=== PATIENT | female | born 1960 | race African-American/Black ===

== ENCOUNTER 2018-03-10 12:15 | Emergency (ER) | payer MEDICAID, MEDICARE ==
[~2018-03-10] VITALS: Ht 167.6 cm; Wt 90.0 kg
[2018-03-10] MEDS ORDERED: KETOROLAC 30MG/ML VIAL IM ONE (15:15)
[2018-03-10 15:33] VITALS: BP 131/53
== END 2018-03-10 16:23 | disposition home or self-care (01) ==
LOC: ER 12:15
DX: S82.251A Displaced comminuted fracture of shaft of right tibia, initial encounter for closed fracture (principal); S82.491A Other fracture of shaft of right fibula, initial encounter for closed fracture; F17.200 Nicotine dependence, unspecified, uncomplicated; X58.XXXA Exposure to other specified factors, initial encounter; Y93.89 Activity, other specified; Y92.89 Other specified places as the place of occurrence of the external cause
CPT/HCPCS: 73590; 73610; 73630; 96372; 99284; J1885

== ENCOUNTER 2025-02-10 08:27 | Inpatient (IN) | payer MEDICAID ==
[~2025-02-10] VITALS: Ht 165.1 cm; Wt 95.8 kg
[2025-02-10] VITALS (44 sets, daily range): BP systolic 107–165; BP diastolic 60–136; PULSE 81–121; RESP 17–27; TEMP 36.2–37.1; O2SAT 0–100
[2025-02-10 09:11] LABS: BASOPHILS % 0.2 % (0.0-2.0); HEMATOCRIT. 43.7 % (36.0-48.0); HEMOGLOBIN. 14.2 g/dL (12.0-16.0); LYMPHOCYTES % 10.5 % (20.0-50.0); MEAN CORPUSCULAR HEMOGLOBIN 27.2 pg (28.0-32.0); MEAN CORPUSCULAR HGB CONC 32.5 g/dL (31.0-37.0); MEAN CORPUSCULAR VOLUME 83.7 fL (81.0-99.0); MEAN PLATELET VOLUME 8.7 fl (7.4-10.4); MONOCYTES % 3.6 % (2.0-8.0); NEUTROPHILS % 85.7 % (40.0-76.0); PLATELET 197 x1000/uL (130-400); RED BLOOD CELL COUNT 5.21 mill/uL (4.2-5.4); RED CELL DISTRIBUTION WIDTH 16.4 % (11.6-14.6); WHITE BLOOD COUNT 6.1 x1000/uL (4.5-11.0)
[2025-02-10 09:16] LABS: LACTIC ACID 2.1 mmol/L (0.4-2.0)
[2025-02-10] MEDS: PROPOFOL 10MG/ML 100ML 100 ML IV SCH (09:17)
[2025-02-10] MEDS: ETOMIDATE 2MG/ML 10ML VIAL IV ONE (09:17)
[2025-02-10] MEDS: ROCURONIUM BROMIDE 10MG/ML VIAL 5ML IV ONE (09:17)
[2025-02-10] MEDS: SODIUM CHLORIDE 0.9% 1,000 ML IV ONE ×2 (09:17→09:40)
[2025-02-10] MEDS: NALOXONE HCL 0.4MG/ML 1ML VIAL IV PRN (09:18)
[2025-02-10 09:23] LABS: CHLORIDE 111 mEq/L (98-107); POTASSIUM 3.6 mEq/L (3.5-5.1); SODIUM 150 mEq/L (136-145)
[2025-02-10 09:24] LABS: CARBON DIOXIDE 27 mEq/L (21-32)
[2025-02-10 09:25] LABS: CALCIUM 9.4 mg/dL (8.7-10.4)
[2025-02-10 09:29] LABS: GLUCOSE 129 mg/dL (70-105)
[2025-02-10 09:30] LABS: AMMONIA < 17 uMol/L (<32); ETHANOL BLOOD < 10 mg/dL (<10); UREA NITROGEN BLOOD 25 mg/dL (9-23)
[2025-02-10 09:31] LABS: ALANINE AMINOTRANSFERASE 7 IU/L (10-49); ALBUMIN 3.8 g/dL (3.2-4.8); ASPARTATE AMINOTRANSFERASE 18 IU/L (<34); CREATINE KINASE 205 IU/L (34-145)
[2025-02-10 09:32] LABS: BILIRUBIN DIRECT 0.3 mg/dL (<=3.0); PROTEIN TOTAL 7.1 g/dL (6.0-8.3)
[2025-02-10 09:36] LABS: BG BASE EXCESS -4.2 mmol/L (-2.0-3.0); BG CARBOXYHEMOGLOBIN 2.3 % (0.5-1.5); BG FRACTION INSPIRED OXYGEN 100; BG HCO3 ACT 22.8 mmol/L (21.0-28.0); BG METHEMOGLOBIN 0.3 % (0.5-1.5); BG OXYGEN SATURATION 91.8 % (94.0-98.0); BG OXYHEMOGLOBIN 89.4 % (94.0-98.0); BG PCO2 49.4 mmHg (32.0-45.0); BG PH 7.283 (7.350-7.450); BG PO2 70.9 mmHg (83.0-108.0); BG SAMPLE SITE RIGHT BRACHIAL; BG TOTAL HEMOGLOBIN 13.8 g/dL (12.0-16.0); BG VENT MODE VENT - AC
[2025-02-10 09:37] LABS: CREATININE 1.5 mg/dL (0.6-1.0)
[2025-02-10 09:39] LABS: TROPONIN I HIGH SENSITIVITY 84 ng/L (3.0-34)
[2025-02-10 10:27] LABS: CLARITY URINE TURBID (CLEAR); COLOR URINE YELLOW (YELLOW); GLUCOSE URINE NEGATIVE (NEGATIVE); KETONES URINE TRACE (NEGATIVE); LEUKOCYTE ESTERASE URINE 3+ (NEGATIVE); NITRITE URINE POSITIVE (NEGATIVE); OCCULT BLOOD URINE 1+ (NEGATIVE); PH URINE 6.5 (4.5-8.0); PROTEIN URINE 2+ (NEGATIVE); SPECIFIC GRAVITY URINE 1.021 (1.005-1.030)
[2025-02-10 10:37] LABS: BACTERIA URINE 3+; SQUAMOUS EPITHELIAL CELL URINE 3+ /lpf (RARE/1+); WBC URINE TNTC /hpf (0-2); YEAST URINE NONE SEEN
[2025-02-10] MEDS ORDERED: GUAIFENESIN 200MG/10ML SUGAR FREE UDC PO PRN (11:00)
[2025-02-10] MEDS ORDERED: DIPHENHYDRAMINE 50MG/ML VIAL IV PRN (11:00)
[2025-02-10] MEDS ORDERED: PIPERACILLIN/TAZOBACTAM 3.375 G in DEXTROSE 5% WATER 50 ML IV SCH (11:00)
[2025-02-10] MEDS ORDERED: ONDANSETRON HCL 4MG/2ML INJ IV PRN (11:00)
[2025-02-10] MEDS ORDERED: IPRATROPIUM/ALBUTEROL 0.5-3(2.5)MG/3ML NEB HHN PRN (11:00)
[2025-02-10] MEDS ORDERED: DOCUSATE SODIUM 100MG CAPSULE PO PRN (11:00)
[2025-02-10] MEDS ORDERED: ACETAMINOPHEN 325MG TABLET PO PRN (11:00)
[2025-02-10] MEDS ORDERED: MAGNESIUM/ALUMINUM HYDROXIDE/SIMETHICONE 30ML UDC PO PRN (11:00)
[2025-02-10] MEDS: SODIUM CHLORIDE 0.45% 1,000 ML IV SCH (11:09)
[2025-02-10 11:18] LABS: *AMPHETAMINES SCREEN URINE NEGATIVE (NEGATIVE); *BARBITURATES SCREEN URINE NEGATIVE (NEGATIVE); *BENZODIAZEPINES SCREEN URINE PRESUMPTIVE POSITIVE (NEGATIVE); *COCAINE SCREEN URINE PRESUMPTIVE POSITIVE (NEGATIVE); CANNABINOID URINE SCREEN NEGATIVE (NEGATIVE); ECSTASY MDMA SCREEN URINE NEGATIVE (NEGATIVE); METHADONE URINE SCREEN NEGATIVE (NEGATIVE); OPIATES URINE SCREEN NEGATIVE (NEGATIVE); PHENCYCLIDINE URINE SCREEN PRESUMTIVE POSITIVE (NEGATIVE)
[2025-02-10 11:49] LABS: CHLORIDE 116 mEq/L (98-107); POTASSIUM 3.2 mEq/L (3.5-5.1); SODIUM 151 mEq/L (136-145)
[2025-02-10 11:50] LABS: CALCIUM 8.3 mg/dL (8.7-10.4); CARBON DIOXIDE 26 mEq/L (21-32)
[2025-02-10 11:55] LABS: CREATININE 1.3 mg/dL (0.6-1.0); GLUCOSE 128 mg/dL (70-105); UREA NITROGEN BLOOD 24 mg/dL (9-23)
[2025-02-10 11:57] LABS: ALANINE AMINOTRANSFERASE 9 IU/L (10-49); ALBUMIN 3.2 g/dL (3.2-4.8); ASPARTATE AMINOTRANSFERASE 23 IU/L (<34); CREATINE KINASE 466 IU/L (34-145); PHOSPHORUS 3.3 mg/dL (2.5-4.9)
[2025-02-10 11:58] LABS: BILIRUBIN TOTAL 0.8 mg/dL (0.1-1.0); PROTEIN TOTAL 6.2 g/dL (6.0-8.3)
[2025-02-10] MEDS ORDERED: VANCOMYCIN 1GM/200ML PMX (BAXTER) IV SCH ×2 (12:00→14:00)
[2025-02-10 12:17] LABS: TROPONIN I HIGH SENSITIVITY 87 ng/L (3.0-34)
[2025-02-10] MEDS ORDERED: PIPERACILLIN/TAZO 3.375G/50ML 50 ML IV SCH (14:00)
[2025-02-10] MEDS: PANTOPRAZOLE SODIUM 40 MG/VIAL IV SCH (14:13)
[2025-02-10] MEDS: METHYLPREDNISOLONE SOD SUCC 40MG/ML (ACT-O-VIAL) IV SCH (14:13)
[2025-02-10] MEDS: ASPIRIN 81MG TABLET PO SCH (14:14)
[2025-02-10] MEDS: PIPERACILLIN/TAZO 3.375G/50ML IV SCH (14:14)
[2025-02-10] MEDS ORDERED: MAGNESIUM SULFATE 1GM/2ML VIAL IM ONE (14:15)
[2025-02-10] MEDS ORDERED: POTASSIUM CHLORIDE 40 MEQ in DEXT 5% WATER 230 ML IV ONE (14:15)
[2025-02-10] MEDS: VANCOMYCIN 2GM PMX (XELLIA) 400 ML IV NR (14:15)
[2025-02-10] MEDS: ENOXAPARIN 40MG/0.4ML SYR SUBCUT SCH (14:15)
[2025-02-10] MEDS: CLONIDINE 0.1MG TABLET PO PRN (15:04)
[2025-02-10] MEDS: MAGNESIUM 1 G PREMIX 100 ML IV SCH (15:08)
[2025-02-10] MEDS: KCL 20MEQ/100ML X 2 FOR TOTAL KCL 40MEQ/200ML IV SCH (15:08)
[2025-02-10] MEDS: IPRATROPIUM/ALBUTEROL 0.5-3(2.5)MG/3ML NEB HHN SCH (15:11)
[2025-02-10 16:29] LABS: BG BASE EXCESS -4.2 mmol/L (-2.0-3.0); BG CARBOXYHEMOGLOBIN 1.8 % (0.5-1.5); BG DEOXYHEMOGLOBIN 0.3 % (0.0-5.0); BG FRACTION INSPIRED OXYGEN 100; BG METHEMOGLOBIN 0.3 % (0.5-1.5); BG OXYGEN SATURATION 99.7 % (94.0-98.0); BG OXYHEMOGLOBIN 97.6 % (94.0-98.0); BG PCO2 44.3 mmHg (32.0-45.0); BG PH 7.313 (7.350-7.450); BG PO2 413.6 mmHg (83.0-108.0); BG SAMPLE SITE RIGHT RADIAL; BG TOTAL HEMOGLOBIN 13.4 g/dL (12.0-16.0); BG VENT MODE VENT - AC
[2025-02-10 19:07] LABS: CREATINE KINASE MB FRACTION 9.1 ng/mL (0.5-3.6)
[2025-02-10] MEDS: ATORVASTATIN CALCIUM 40MG TABLET PO SCH (21:37)
[2025-02-11] VITALS (100 sets, daily range): BP systolic 104–194; BP diastolic 60–134; PULSE 66–119; RESP 18–34; TEMP 36.3–36.8; O2SAT 98–100
[2025-02-11] MEDS: PROPOFOL 10MG/ML 100ML 100 ML IV PRN (00:17)
[2025-02-11 01:42] LABS: CREATINE KINASE MB FRACTION 5.4 ng/mL (0.5-3.6)
[2025-02-11 05:11] LABS: HEMATOCRIT. 39.6 % (36.0-48.0); HEMOGLOBIN. 12.5 g/dL (12.0-16.0); MEAN CORPUSCULAR HEMOGLOBIN 26.7 pg (28.0-32.0); MEAN CORPUSCULAR HGB CONC 31.5 g/dL (31.0-37.0); MEAN CORPUSCULAR VOLUME 84.7 fL (81.0-99.0); MEAN PLATELET VOLUME 9.1 fl (7.4-10.4); PLATELET 164 x1000/uL (130-400); RED BLOOD CELL COUNT 4.67 mill/uL (4.2-5.4); RED CELL DISTRIBUTION WIDTH 16.8 % (11.6-14.6); WHITE BLOOD COUNT 14.1 x1000/uL (4.5-11.0)
[2025-02-11 05:18] LABS: DIFFERENTIAL COMMENT 1
[2025-02-11 05:30] LABS: CARBON DIOXIDE 24 mEq/L (21-32); CHLORIDE 112 mEq/L (98-107); POTASSIUM 4.3 mEq/L (3.5-5.1); SODIUM 147 mEq/L (136-145)
[2025-02-11 05:36] LABS: CREATININE 1.3 mg/dL (0.6-1.0); GLUCOSE 135 mg/dL (70-105); TRIGLYCERIDE 87 mg/dL (0-150); UREA NITROGEN BLOOD 26 mg/dL (9-23)
[2025-02-11 05:37] LABS: LDL CHOLESTEROL 52 mg/dL (5-100)
[2025-02-11 05:38] LABS: CHOLESTEROL 140 mg/dL (<200); HDL CHOLESTEROL 69 mg/dL (>65)
[2025-02-11 05:40] LABS: ANISOCYTOSIS 1+; PLATELET ESTIMATE NORMAL; T4 FREE 1.02 ng/dL (0.89-1.76); THYROID STIMULATING HORMONE < 0.10 uIU/mL (0.55-4.78)
[2025-02-11 09:27] LABS: BG BASE EXCESS -5.9 mmol/L (-2.0-3.0); BG CARBOXYHEMOGLOBIN 1.8 % (0.5-1.5); BG DEOXYHEMOGLOBIN 3.1 % (0.0-5.0); BG FRACTION INSPIRED OXYGEN 40; BG HCO3 ACT 18.9 mmol/L (21.0-28.0); BG METHEMOGLOBIN 0.2 % (0.5-1.5); BG OXYGEN SATURATION 96.8 % (94.0-98.0); BG OXYHEMOGLOBIN 94.9 % (94.0-98.0); BG PCO2 34.9 mmHg (32.0-45.0); BG PH 7.352 (7.350-7.450); BG PO2 85.8 mmHg (83.0-108.0); BG SAMPLE SITE RIGHT RADIAL; BG TOTAL HEMOGLOBIN 12.3 g/dL (12.0-16.0); BG VENT MODE VENT - AC
[2025-02-11] MEDS: DEXMEDETOMIDINE 400 MCG/100 ML 100 ML IV PRN (09:36)
[2025-02-11] MEDS: HYDRALAZINE 20MG/ML VIAL IV NR (14:51)
[2025-02-11 15:14] LABS: INFLUENZA TYPE A Presumptive Negative (Pres. Neg.); INFLUENZA TYPE B Presumptive Negative (Pres. Neg.)
[2025-02-11 15:15] LABS: RESPIRATORY SYNCYTIAL VIRUS Not Detected (Not Detectd)
[2025-02-11] MEDS ORDERED: ENOXAPARIN 100MG/ML SYR SUBCUT NR (16:00)
[2025-02-11] MEDS: VANCOMYCIN 1GM/200ML PMX (BAXTER) IV SCH (17:22)
[2025-02-11] MEDS: ENOXAPARIN 60MG/0.6ML SYR SUBCUT NR (17:23)
[2025-02-11] MEDS: HYDRALAZINE 20MG/ML VIAL IV PRN (20:20)
[2025-02-12] VITALS (104 sets, daily range): BP systolic 98–206; BP diastolic 53–104; PULSE 57–98; RESP 16–32; TEMP 36.3–36.9; O2SAT 97–100
[2025-02-12] MEDS ORDERED: LABETALOL 5MG/ML 4ML INJ IV PRN (01:30)
[2025-02-12] MEDS: HYDRALAZINE 20MG/ML VIAL IV PRN (02:08)
[2025-02-12] MEDS: LABETALOL 5MG/ML 4ML INJ IV PRN (05:22)
[2025-02-12] MEDS: ENOXAPARIN 100MG/ML SYR SUBCUT SCH (05:49)
[2025-02-12 06:03] LABS: HEMATOCRIT 42.5 % (36.0-48.0); HEMATOCRIT. 42.5 % (36.0-48.0); HEMOGLOBIN 13.6 g/dL (12.0-16.0); HEMOGLOBIN. 13.6 g/dL (12.0-16.0); MEAN CORPUSCULAR VOLUME 84.4 fL (81.0-99.0); MEAN PLATELET VOLUME 9.5 fl (7.4-10.4); PLATELET 150 x1000/uL (130-400); RED BLOOD CELL COUNT 5.03 mill/uL (4.2-5.4); RED CELL DISTRIBUTION WIDTH 16.9 % (11.6-14.6); WHITE BLOOD COUNT 14.8 x1000/uL (4.5-11.0)
[2025-02-12 06:07] LABS: DIFFERENTIAL COMMENT 1
[2025-02-12 06:26] LABS: CARBON DIOXIDE 20 mEq/L (21-32); CHLORIDE 108 mEq/L (98-107); POTASSIUM 4.2 mEq/L (3.5-5.1); SODIUM 140 mEq/L (136-145)
[2025-02-12 06:31] LABS: CREATININE 1.1 mg/dL (0.6-1.0); GLUCOSE 142 mg/dL (70-105); TRIGLYCERIDE 55 mg/dL (0-150)
[2025-02-12 06:32] LABS: UREA NITROGEN BLOOD 24 mg/dL (9-23)
[2025-02-12 06:34] LABS: PHOSPHORUS 2.9 mg/dL (2.5-4.9)
[2025-02-12 08:19] LABS: PLATELET ESTIMATE NORMAL
[2025-02-12 08:20] LABS: ANISOCYTOSIS 1+
[2025-02-12] MEDS: HYDRALAZINE 20MG/ML VIAL IV SCH (08:46)
[2025-02-12] MEDS ORDERED: VANCOMYCIN 1.25GM/250ML IV SCH (12:00)
[2025-02-12] MEDS: AZITHROMYCIN 500MG/250ML 250 ML IV SCH (13:52)
[2025-02-12] MEDS: SODIUM CHLORIDE 0.45% 1,000 ML IV SCH (14:03)
[2025-02-12] MEDS: HYDRALAZINE HCL 25MG TABLET PO SCH (14:09)
[2025-02-12] MEDS: METRONIDAZOLE 500MG TABLET PO SCH (14:31)
[2025-02-12] MEDS: CEFTRIAXONE 1GM/50ML 50 ML IV SCH (15:22)
[2025-02-13] VITALS (80 sets, daily range): BP systolic 96–189; BP diastolic 53–128; PULSE 63–118; RESP 14–40; TEMP 36.4–37.1; O2SAT 97–100
[2025-02-13 06:05] LABS: HEMATOCRIT. 38.4 % (36.0-48.0); HEMOGLOBIN. 12.3 g/dL (12.0-16.0); MEAN CORPUSCULAR HEMOGLOBIN 26.5 pg (28.0-32.0); MEAN CORPUSCULAR VOLUME 82.8 fL (81.0-99.0); MEAN PLATELET VOLUME 9.4 fl (7.4-10.4); PLATELET 150 x1000/uL (130-400); RED BLOOD CELL COUNT 4.64 mill/uL (4.2-5.4); RED CELL DISTRIBUTION WIDTH 16.5 % (11.6-14.6)
[2025-02-13 06:21] LABS: CHLORIDE 109 mEq/L (98-107); POTASSIUM 3.8 mEq/L (3.5-5.1); SODIUM 144 mEq/L (136-145)
[2025-02-13 06:22] LABS: CARBON DIOXIDE 23 mEq/L (21-32)
[2025-02-13 06:23] LABS: CALCIUM 8.5 mg/dL (8.7-10.4)
[2025-02-13 06:28] LABS: GLUCOSE 112 mg/dL (70-105); UREA NITROGEN BLOOD 27 mg/dL (9-23)
[2025-02-13 06:29] LABS: DIFFERENTIAL COMMENT 1
[2025-02-13] MEDS: AMLODIPINE 5MG TABLET PO SCH ×2 (09:23→21:00)
[2025-02-13 11:12] LABS: ANISOCYTOSIS 1+; PLATELET ESTIMATE NORMAL
[2025-02-13] MEDS: LORAZEPAM 2MG/ML UD SYRINGE IV NR ×2 (11:13→22:50)
[2025-02-13] MEDS ORDERED: NALOXONE HCL 0.4MG/ML VIAL IV PRN (12:00)
[2025-02-13] MEDS: MORPHINE SULFATE 2 MG/ML INJ (NOT FOR IM USE) IV NR (12:13)
[2025-02-13] MEDS: CLONIDINE 0.1MG TABLET PO SCH (15:01)
[2025-02-13 17:17] LABS: BG BASE EXCESS -2.5 mmol/L (-2.0-3.0); BG CARBOXYHEMOGLOBIN 1.6 % (0.5-1.5); BG DEOXYHEMOGLOBIN 2.1 % (0.0-5.0); BG FRACTION INSPIRED OXYGEN 40; BG HCO3 ACT 20.7 mmol/L (21.0-28.0); BG METHEMOGLOBIN 0.3 % (0.5-1.5); BG OXYGEN SATURATION 97.9 % (94.0-98.0); BG PH 7.443 (7.350-7.450); BG PO2 97.9 mmHg (83.0-108.0); BG SAMPLE SITE RIGHT RADIAL; BG TOTAL HEMOGLOBIN 12.1 g/dL (12.0-16.0); BG VENT MODE VENT - AC
[2025-02-13] MEDS: DEXMEDETOMIDINE 400 MCG/100 ML 100 ML IV PRN (20:53)
[2025-02-14] VITALS (63 sets, daily range): BP systolic 91–159; BP diastolic 52–90; PULSE 60–99; RESP 13–29; TEMP 36.4–37; O2SAT 96–100
[2025-02-14 05:54] LABS: BASOPHILS % 0.1 % (0.0-2.0); EOSINOPHILS % 0.1 % (0.0-5.0); HEMATOCRIT. 37.5 % (36.0-48.0); HEMOGLOBIN. 12.3 g/dL (12.0-16.0); LYMPHOCYTES % 25.9 % (20.0-50.0); MEAN CORPUSCULAR HEMOGLOBIN 26.9 pg (28.0-32.0); MEAN CORPUSCULAR HGB CONC 32.8 g/dL (31.0-37.0); MEAN CORPUSCULAR VOLUME 82.1 fL (81.0-99.0); MEAN PLATELET VOLUME 9.2 fl (7.4-10.4); MONOCYTES % 7.8 % (2.0-8.0); NEUTROPHILS % 66.1 % (40.0-76.0); PLATELET 144 x1000/uL (130-400); RED BLOOD CELL COUNT 4.56 mill/uL (4.2-5.4); WHITE BLOOD COUNT 7.1 x1000/uL (4.5-11.0)
[2025-02-14 06:12] LABS: CARBON DIOXIDE 24 mEq/L (21-32); CHLORIDE 109 mEq/L (98-107); POTASSIUM 3.4 mEq/L (3.5-5.1); SODIUM 143 mEq/L (136-145)
[2025-02-14 06:14] LABS: CALCIUM 8.2 mg/dL (8.7-10.4)
[2025-02-14 06:18] LABS: CREATININE 0.8 mg/dL (0.6-1.0); GLUCOSE 114 mg/dL (70-105); UREA NITROGEN BLOOD 22 mg/dL (9-23)
[2025-02-14] MEDS: POTASSIUM CHLORIDE 20MEQ/PACKET NG NR (14:40)
[2025-02-14] MEDS: ACETAMINOPHEN 325MG TABLET PO PRN (19:54)
[2025-02-15] VITALS (8 sets, daily range): BP systolic 95–134; BP diastolic 44–89; PULSE 87–112; RESP 17–22; TEMP 35.6–36.4; O2SAT 95–99
[2025-02-15 07:09] LABS: EOSINOPHILS % 0.5 % (0.0-5.0); HEMATOCRIT. 36.4 % (36.0-48.0); HEMOGLOBIN. 11.6 g/dL (12.0-16.0); MEAN CORPUSCULAR HEMOGLOBIN 26.6 pg (28.0-32.0); MEAN CORPUSCULAR HGB CONC 31.8 g/dL (31.0-37.0); MEAN CORPUSCULAR VOLUME 83.5 fL (81.0-99.0); MEAN PLATELET VOLUME 8.9 fl (7.4-10.4); MONOCYTES % 14.8 % (2.0-8.0); NEUTROPHILS % 59.7 % (40.0-76.0); PLATELET 133 x1000/uL (130-400); RED BLOOD CELL COUNT 4.36 mill/uL (4.2-5.4); RED CELL DISTRIBUTION WIDTH 16.4 % (11.6-14.6); WHITE BLOOD COUNT 6.3 x1000/uL (4.5-11.0)
[2025-02-15 07:21] LABS: CARBON DIOXIDE 25 mEq/L (21-32); CHLORIDE 109 mEq/L (98-107); POTASSIUM 3.9 mEq/L (3.5-5.1); SODIUM 141 mEq/L (136-145)
[2025-02-15 07:22] LABS: CALCIUM 8.4 mg/dL (8.7-10.4)
[2025-02-15 07:26] LABS: CREATININE 0.7 mg/dL (0.6-1.0); GLUCOSE 87 mg/dL (70-105)
[2025-02-15 07:27] LABS: UREA NITROGEN BLOOD 16 mg/dL (9-23)
[2025-02-15] MEDS: SODIUM CHLORIDE 0.9% 500 ML IV ONE (16:43)
[2025-02-15] MEDS: SODIUM CHLORIDE 0.9% 1,000 ML IV SCH (20:29)
[2025-02-16] VITALS: BP 109/64; PULSE 107; RESP 22; TEMP 36.2; O2SAT 98
[2025-02-16 04:00] VITALS: BP 110/62; PULSE 105; RESP 21; TEMP 36.2; O2SAT 98
[2025-02-16 08:00] VITALS: BP 123/60; PULSE 65; RESP 18; TEMP 36.7; O2SAT 95
[2025-02-16 12:00] VITALS: BP 121/79; PULSE 81; RESP 18; TEMP 36.6; O2SAT 96
[2025-02-16 16:00] VITALS: BP 166/95; PULSE 89; RESP 16; TEMP 36.1; O2SAT 95
[2025-02-16] MEDS ORDERED: HYDR25TA78 PO (18:08)
[2025-02-16] MEDS ORDERED: AMLO5TAB88 PO (18:08)
[2025-02-16] MEDS ORDERED: LIP40 PO (18:08)
[2025-02-16] MEDS ORDERED: ASPI-1160 PO (18:08)
[2025-02-16 19:33] LABS: HEMATOCRIT 40.3 % (36.0-48.0); HEMOGLOBIN 12.6 g/dL (12.0-16.0); MEAN CORPUSCULAR HEMOGLOBIN 26.5 pg (28.0-32.0); MEAN CORPUSCULAR HGB CONC 31.2 g/dL (31.0-37.0); MEAN CORPUSCULAR VOLUME 85.1 fL (81.0-99.0); PLATELET 175 x1000/uL (130-400); RED BLOOD CELL COUNT 4.73 mill/uL (4.2-5.4); RED CELL DISTRIBUTION WIDTH 16.7 % (11.6-14.6); WHITE BLOOD COUNT 7.9 x1000/uL (4.5-11.0)
[2025-02-16 19:40] LABS: CHLORIDE 105 mEq/L (98-107); POTASSIUM 3.8 mEq/L (3.5-5.1); SODIUM 140 mEq/L (136-145)
[2025-02-16 19:41] LABS: CARBON DIOXIDE 26 mEq/L (21-32)
[2025-02-16 19:42] LABS: CALCIUM 8.6 mg/dL (8.7-10.4)
[2025-02-16 19:46] LABS: CREATININE 0.7 mg/dL (0.6-1.0); GLUCOSE 100 mg/dL (70-105)
[2025-02-16 19:47] LABS: UREA NITROGEN BLOOD 10 mg/dL (9-23)
[2025-02-16 20:00] VITALS: BP 151/66; PULSE 96; RESP 20; TEMP 35.7; O2SAT 97
[2025-02-17] VITALS: BP 135/48; PULSE 81; RESP 20; TEMP 36.2; O2SAT 97
[2025-02-17 04:00] VITALS: BP 135/48; PULSE 81; RESP 20; TEMP 36.2; O2SAT 97
[2025-02-17 08:00] VITALS: BP 102/51; PULSE 87; RESP 19; TEMP 36.6; O2SAT 95
[2025-02-17 08:50] LABS: HEMATOCRIT 33.5 % (36.0-48.0); HEMOGLOBIN 10.8 g/dL (12.0-16.0); MEAN CORPUSCULAR HEMOGLOBIN 26.9 pg (28.0-32.0); MEAN CORPUSCULAR HGB CONC 32.2 g/dL (31.0-37.0); MEAN CORPUSCULAR VOLUME 83.5 fL (81.0-99.0); PLATELET 208 x1000/uL (130-400); RED BLOOD CELL COUNT 4.02 mill/uL (4.2-5.4); RED CELL DISTRIBUTION WIDTH 16.1 % (11.6-14.6); WHITE BLOOD COUNT 6.5 x1000/uL (4.5-11.0)
[2025-02-17 08:57] LABS: CHLORIDE 105 mEq/L (98-107); POTASSIUM 3.8 mEq/L (3.5-5.1); SODIUM 140 mEq/L (136-145)
[2025-02-17 08:58] LABS: CALCIUM 8.5 mg/dL (8.7-10.4); CARBON DIOXIDE 31 mEq/L (21-32)
[2025-02-17 09:03] LABS: CREATININE 0.8 mg/dL (0.6-1.0); GLUCOSE 87 mg/dL (70-105); UREA NITROGEN BLOOD 10 mg/dL (9-23)
[2025-02-17 12:00] VITALS: BP 106/43; PULSE 87; RESP 16; TEMP 37.1; O2SAT 100
[2025-02-17 14:56] VITALS: BP 111/56; PULSE 81; TEMP 98.7; O2SAT 100
== END 2025-02-17 16:20 | disposition home or self-care (01) | DRG 870 ==
LOC: ER 08:27 → MICUSO 10:01 → EDBEDREQ 10:20 → EDBEDREQTM 10:20 → ENRESERV 11:47 → 6WST 02-14 23:21
PROVIDERS: ADMIT Internal Medicine; ATTEND Internal Medicine
PROC: 5A1955Z Respiratory Ventilation, Greater than 96 Consecutive Hours (ICD-10-PCS; principal; 2025-02-10)
PROC: 0BH17EZ Insertion of Endotracheal Airway into Trachea, Via Natural or Artificial Opening (ICD-10-PCS; 2025-02-10)
PROC: 5A09357 Assistance with Respiratory Ventilation, Less than 24 Consecutive Hours, Continuous Positive Airway Pressure (ICD-10-PCS; 2025-02-10)
DX: A41.59 Other Gram-negative sepsis (principal); G92.9 Unspecified toxic encephalopathy; J69.0 Pneumonitis due to inhalation of food and vomit; J96.01 Acute respiratory failure with hypoxia; J96.02 Acute respiratory failure with hypercapnia; I21.A1 Myocardial infarction type 2; N17.0 Acute kidney failure with tubular necrosis; I46.9 Cardiac arrest, cause unspecified; N39.0 Urinary tract infection, site not specified; E87.1 Hypo-osmolality and hyponatremia; E87.29 Other acidosis; I82.411 Acute embolism and thrombosis of right femoral vein; Z20.822 Contact with and (suspected) exposure to COVID-19; I12.9 Hypertensive chronic kidney disease with stage 1 through stage 4 chronic kidney disease, or unspecified chronic kidney disease; E11.22 Type 2 diabetes mellitus with diabetic chronic kidney disease; E78.5 Hyperlipidemia, unspecified; R65.20 Severe sepsis without septic shock; T40.991A Poisoning by other psychodysleptics [hallucinogens], accidental (unintentional), initial encounter; F16.10 Hallucinogen abuse, uncomplicated; T40.5X1A Poisoning by cocaine, accidental (unintentional), initial encounter; T42.4X1A Poisoning by benzodiazepines, accidental (unintentional), initial encounter; B96.89 Other specified bacterial agents as the cause of diseases classified elsewhere; B95.8 Unspecified staphylococcus as the cause of diseases classified elsewhere; E03.8 Other specified hypothyroidism; N18.9 Chronic kidney disease, unspecified; E05.90 Thyrotoxicosis, unspecified without thyrotoxic crisis or storm; F13.10 Sedative, hypnotic or anxiolytic abuse, uncomplicated; F14.10 Cocaine abuse, uncomplicated; Z87.440 Personal history of urinary (tract) infections; Z79.899 Other long term (current) drug therapy; Y92.89 Other specified places as the place of occurrence of the external cause
CPT/HCPCS: 31500; 31720; 36415; 36600; 71045; 80048; 80053; 80061; 80076; 80202; 80305; 80320; 81003; 82140; 82375; 82550; 82553; 82805; 82962; 83036; 83605; 83735; 83880; 84100; 84145; 84439; 84443; 84478; 84484; 85025; 85027; 87070; 87077; 87186; 87420; 87426; 87804; 93005; 93306; 93970; 94002; 94003; 94070; 94640; 94664; 94760; 97162; 97166; 98960; 99285; A4606; J0360; J0456; J0696; J1650; J2060; J2270; J2310; J2470; J2543; J2704; J2919; J3370; J3475; J3480; J3490; J7030; G0480